=== PATIENT | male | born 1995 | race African-American/Black ===

== ENCOUNTER 2017-05-23 02:08 | Emergency (ER) | payer SELFPAY ==
[2017-05-23] MEDS ORDERED: LORAZEPAM 2 MG/ML 1 ML VIAL IV STA ×2 (02:14→02:32)
[2017-05-23 02:23] VITALS: TEMP 36.9
[2017-05-23 02:35] LABS: HEMATOCRIT 47.2 % (42-52); MEAN CELL VOLUME 81.9 fL (80-100); MEAN CORPUSCULAR HEMOGLOBIN 28.8 pg (25-34); MEAN CORPUSCULAR HGB CONC 35.2 g/dl (32-36); MEAN PLATELET VOLUME 9.5 fL (7.4-10.4); PLATELET COUNT 204 K/uL (130-400); RED BLOOD COUNT 5.76 M/uL (4.7-6.1)
[2017-05-23 02:48] LABS: URINE APPEARANCE CLEAR (CLEAR); URINE BILIRUBIN NEG (NEG); URINE COLOR YELLOW; URINE NITRITE NEG (NEG); URINE PH 5.5 (4.5-7.5); URINE SPECIFIC GRAVITY 1.017 (1.000-1.030); UROBILINOGEN NEG (NEG); ZZURINE CULT IF INDIC CATH NO
[2017-05-23 02:48] LABS: INR 1.1 (0.9-1.1); PROTHROMBIN TIME (PATIENT) 11.3 SECONDS (9.0-12.0)
[2017-05-23 02:49] LABS: MANUAL MICROSCOPIC REQUIRED? NO; REVIEW REQ? NO
[2017-05-23 02:55] LABS: ALT/SGPT 37 U/L (12-78); AST/SGOT 41 U/L (15-37); BLOOD UREA NITROGEN 15 mg/dl (7-18); BUN/CREATININE RATIO 9.7 (10-20); CALCIUM 8.3 mg/dl (8.5-10.1); CARBON DIOXIDE 26 mmol/L (21-32); CHLORIDE 113 mmol/L (98-107); GLUCOSE 94 mg/dl (70-99); POTASSIUM 4.2 mmol/L (3.5-5.1); SODIUM 147 mmol/L (136-145)
[2017-05-23 02:58] LABS: ALB/GLOB RATIO 1.3 (0.9-2); ALKALINE PHOSPHATASE 79 U/L (45-117)
[2017-05-23 03:00] LABS: BASO % 0.2 %; BASO ABS # 0.02 K/uL (0-0.2); COMPLETE YES; EOS % 0.3 %; IG% 0.3 %; LYMPH % 51.5 %; LYMPH ABS # 4.43 K/uL (1.2-3.4); MONO % 3.6 %; NEUT % 44.1 %
[2017-05-23 03:06] LABS: BENZODIAZEPINE, URINE NEG (NEG); COCAINE,URINE NEG (NEG); PHENCYCLIDINE, URINE NEG (NEG)
[2017-05-23 03:08] VITALS: O2SAT 92
--- NOTE | 2017-05-23 06:46 | EMERGENCY ROOM VISIT NOTE ---
History First contact with patient: 02:09 Chief Complaint: ALCOHOL OVERDOSE Stated Complaint: ALCOHOL OVERDOSE Nursing Triage Summary: Pt was found with his friends stumbling down the street. Pt blew 363 and has dried blood in his right ear with an abrasion on his forehead. No one was able to tell where it came from. Upon arrival patient was uncooperative and started yelling. Security called to bedside. Pt refuses to answer questions appropriately. History of Present Illness The patient is a 21 year old male who presents to the Emergency Room for evaluation of alcohol intoxication. The patient was discovered by police stumbling down the street in [facility]. The patient had a breathalyzer of 363 and was noted to have blood on his forehead and right ear. There was no history provided to explain the bleeding, and EMS was contacted. The patient is quite uncooperative upon arrival. He is speaking in nonsensical sentences. He is not answering questions. History is otherwise limited secondary to the patient's status. Review of Systems More than 10 systems were reviewed to the best of our ability considering the patient's status and otherwise negative with the exception of history of present illness. Past Medical/Surgical History Medical Problems: (1) No significant medical problems Surgical Problems: (1) No significant past surgical history Social History Smoking Status: Unknown if Ever Smoked Alcohol Use: heavy Marital Status: single Occupation Status: [employer] student Current/Historical Medications No Active Prescriptions or Reported Meds Allergies Coded Allergies: No Known Allergies (Unverified , 05/23/17) Physical Exam Vital Signs Date Time Temp Pulse Resp B/P (MAP) Pulse Ox O2 Delivery O2 Flow Rate FiO2 05/23/17 12:01 106 18 121/76 99 05/23/17 11:55 102 05/23/17 10:35 92 18 114/44 95 Room Air 05/23/17 09:05 80 05/23/17 08:37 82 20 105/51 94 Room Air 05/23/17 07:16 85 14 125/60 95 Room Air 05/23/17 06:11 85 05/23/17 06:00 83 18 113/48 95 Room Air 05/23/17 05:00 86 17 118/42 93 Room Air 05/23/17 04:05 95 23 111/42 94 Room Air 05/23/17 03:08 92 Room Air 05/23/17 03:06 109 16 159/62 92 Room Air 05/23/17 02:23 114 05/23/17 02:23 36.9 127 23 144/83 94 Room Air Physical Exam VITALS: Vitals are noted on the nurse's note and reviewed by myself. Vital signs stable. GENERAL: Grossly intoxicated appearing male who is not cooperative with the examination. He does smell of alcohol and is not answering questions appropriately. HEAD: Superficial abrasion appreciated over the left side forehead EARS: External ear normal. Left external canal without obvious findings. Right external canal is with blood from unknown origin. EYES: Pupils equal round and reactive to light and accommodation. Conjunctivae without injection, sclerae without icterus. Extraocular movements intact. NOSE: No obvious epistaxis HEART: Tachycardic rate with regular rhythm LUNGS: Clear to auscultation bilaterally without wheezes, rales or rhonchi. No retractions or accessory muscle use. ABDOMEN: Positive normal bowel sounds x 4. Soft, nontender, without masses or organomegaly. No obvious tenderness. MUSCULOSKELETAL: No muscle atrophy, erythema, or edema noted. No gross deformity. Patient is able to spontaneously move all extremities. NEURO: Patient was not alert or oriented. He is with intoxicated appearance. Medical Decision & Procedures ER Provider Diagnostic Interpretation: Preliminary Findings Only See Final Report For Complete Findings CT HEAD: No ICH, mass effect or edema. No skull fracture. Sclerotic underdeveloped right mastoid air cells. Mucous retention cyst or polyp in the right maxillary sinus. CT FACIAL: Sclerotic/underdeveloped right mastoid air cells. Trace fluid in the inferior aspect of the right mastoid air cells. No fracture. Trace fluid, or soft tissue in the right external ear canal seen on the sagittal reformat images. The middle, inner ear canals are patent. Mucous retention cyst or polyp in the right maxillary sinus. Orbits intact. CT C SPINE: No evidence of fracture or malalignment. Laboratory Results 05/23/17 02:21 Red Blood Count 5.76, Mean Corpuscular Volume 81.9, Mean Corpuscular Hemoglobin 28.8, Mean Corpuscular Hemoglobin Concent 35.2, Mean Platelet Volume 9.5, Neutrophils (%) (Auto) 44.1, Lymphocytes (%) (Auto) 51.5, Monocytes (%) (Auto) 3.6, Eosinophils (%) (Auto) 0.3, Basophils (%) (Auto) 0.2, Neutrophils # (Auto) 3.78, Lymphocytes # (Auto) 4.43, Monocytes # (Auto) 0.31, Eosinophils # (Auto) 0.03, Basophils # (Auto) 0.02 05/23/17 02:21 Test 05/23/17 02:21 05/23/17 02:30 05/23/17 02:35 White Blood Count 8.60 K/uL (4.8-10.8) Red Blood Count 5.76 M/uL (4.7-6.1) Hemoglobin 16.6 g/dL (14.0-18.0) Hematocrit 47.2 % (42-52) Mean Corpuscular Volume 81.9 fL (80-100) Mean Corpuscular Hemoglobin 28.8 pg (25-34) Mean Corpuscular Hemoglobin Concent 35.2 g/dl (32-36) Platelet Count 204 K/uL (130-400) Mean Platelet Volume 9.5 fL (7.4-10.4) Neutrophils (%) (Auto) 44.1 % Lymphocytes (%) (Auto) 51.5 % Monocytes (%) (Auto) 3.6 % Eosinophils (%) (Auto) 0.3 % Basophils (%) (Auto) 0.2 % Neutrophils # (Auto) 3.78 K/uL (1.4-6.5) Lymphocytes # (Auto) 4.43 K/uL (1.2-3.4) Monocytes # (Auto) 0.31 K/uL (0.11-0.59) Eosinophils # (Auto) 0.03 K/uL (0-0.5) Basophils # (Auto) 0.02 K/uL (0-0.2) RDW Standard Deviation 39.6 fL (36.4-46.3) RDW Coefficient of Variation 13.2 % (11.5-14.5) Immature Granulocyte % (Auto) 0.3 % Immature Granulocyte # (Auto) 0.03 K/uL (0.00-0.02) Anion Gap 8.0 mmol/L (3-11) Estimated GFR () 75.5 Estimated GFR (Non- 65.1 BUN/Creatinine Ratio 9.7 (10-20) Calcium Level 8.3 mg/dl (8.5-10.1) Total Bilirubin 0.2 mg/dl (0.2-1) Aspartate Amino Transf (AST/SGOT) 41 U/L (15-37) Alanine Aminotransferase (ALT/SGPT) 37 U/L (12-78) Alkaline Phosphatase 79 U/L (45-117) Total Protein 7.6 gm/dl (6.4-8.2) Albumin 4.3 gm/dl (3.4-5.0) Globulin 3.3 gm/dl (2.5-4.0) Albumin/Globulin Ratio 1.3 (0.9-2) Ethyl Alcohol mg/dL 413.0 mg/dl (0-3) Prothrombin Time 11.3 SECONDS (9.0-12.0) Prothromb Time International Ratio 1.1 (0.9-1.1) Activated Partial Thromboplast Time 25.6 SECONDS (21.0-31.0) Partial Thromboplastin Ratio 1.0 Urine Color YELLOW Urine Appearance CLEAR (CLEAR) Urine pH 5.5 (4.5-7.5) Urine Specific [place] 1.017 (1.000-1.030) Urine Protein 1+ (NEG) Urine Glucose (UA) NEG (NEG) Urine Ketones NEG (NEG) Urine Occult Blood NEG (NEG) Urine Nitrite NEG (NEG) Urine Bilirubin NEG (NEG) Urine Urobilinogen NEG (NEG) Urine Leukocyte Esterase NEG (NEG) Urine WBC (Auto) 0 /hpf (0-5) Urine RBC (Auto) 0-4 /hpf (0-4) Urine Hyaline Casts (Auto) 0 /lpf (0-5) Urine Epithelial Cells (Auto) 5-10 /lpf (0-5) Urine Bacteria (Auto) NEG (NEG) Urine Opiates Screen NEG (NEG) Urine Methadone, Qualitative NEG (NEG) Urine Barbiturates NEG (NEG) Urine Phencyclidine (PCP) Level NEG (NEG) Ur Amphetamine/Methamphetamine NEG (NEG) MDMA (Ecstasy) Screen NEG (NEG) Urine Benzodiazepines Screen NEG (NEG) Urine Cocaine Metabolite NEG (NEG) Urine Marijuana (THC) NEG (NEG) Medications Administered Medications (Trade) Dose Ordered Sig/Lesa Route Start Time Stop Time Status Last Admin Dose Admin Lorazepam (Ativan Inj) 2 mg NOW STAT IV 05/23/17 02:14 05/23/17 02:17 DC 7/2/17 02:19 2 MG Lorazepam (Ativan Inj) 2 mg NOW STAT IV 05/23/17 02:32 05/23/17 02:33 DC 05/23/17 03:05 2 MG ED Course Physical exam and history were performed. Nursing notes and EMR were reviewed. Patient appears to have been drinking alcohol this evening with a significantly elevated breathalyzer of 363. The patient is not cooperative and his exam and history are significantly limited. I have significant concern for the patient' s well-being due to his behavior as well as him having obvious outward signs of injury. IV access was established, and labs were obtained. We were able to make the patient much more comfortable after 2 mg IV Ativan. He was placed in a hard cervical spine collar. Following this the patient was taken to CT scan. The patient blood work is as above and was reviewed. He does not have a significantly elevated white blood cell count, gross anemia, bandemia, or significant electrolyte imbalance. His alcohol is grossly elevated at 415. The patient CT scans are as above and do not show evidence of significant acute injury. The patient did require a second dose of 2 mg IV Ativan immediately after CT scan. The patient returned to his room without incident. He was placed on the athletic monitor and was able to sleep very comfortably until the time of shift change. The case was discussed with Jeff Amaya PA-C, who will assume care at this time. The patient will need a repeat examination once he is more sober. Please see Mr. Kingchristian's dictation for further patient course, plan, and disposition. The chart was completed utilizing [employer] Speech Voice Recognition Software. Grammatical errors, random word insertions, pronoun errors, and incomplete sentences are an occasional consequence of this system due to software limitations, ambient noise, and hardware issues. Any formal questions or concerns about the content, text, or information contained within the body of this dictation should be directly addressed to the provider for clarification. . Medical Decision Differential diagnosis: Etiologies such as alcohol intoxication, toxicologic, infection, hypoglycemia, electrolyte abnormalities, cardiac sources, intracerebral event, neurologic, as well as others were entertained. Impression Primary Impression: Alcohol intoxication Additional Impression: Head injury Departure Information Prescriptions No Active Prescriptions or Reported Meds Referrals No Doctor, Assigned (PCP) Patient Instructions My [facility] Problem Qualifiers
--- NOTE | 2017-05-23 06:58 | DIAGNOSTIC IMAGING REPORT ---
CT SCAN OF THE FACIAL BONES WITHOUT IV CONTRAST CLINICAL HISTORY: Intoxication. Head injury. Blood in the right external auditory canal. COMPARISON STUDY: CT of the brain performed concurrently on 05/23/2017. TECHNIQUE: High-resolution CT scan of the facial bones is performed. Images are reviewed in the axial, sagittal, and coronal planes. IV contrast was not administered for this examination. FINDINGS: The skeletal structures are well mineralized. There is no evidence of facial bone fracture. The bony orbits are intact and the orbital contents are within normal limits. The zygomatic arches, nasal bones, and pterygoid plates are preserved. The maxilla and mandible are intact. There are no layering blood products within the paranasal sinuses. There is a 1.7 cm retention cyst in the right maxillary antrum. The paranasal sinuses are otherwise clear. There is a small right mastoid effusion. The left mastoid air cells are clear. The visualized calvarium and upper cervical spine are maintained. Partially imaged brain parenchyma is within normal limits. Trace fluid or debris is present within the right external auditory canal. IMPRESSION: There is no evidence of facial bone fracture. Electronically signed by: Sudhakar Schafer M.D. 05/23/2017 6:57 AM Dictated Date/Time: 05/23/2017 6:51 AM
--- NOTE | 2017-05-23 07:52 | DIAGNOSTIC IMAGING REPORT ---
CT SCAN OF THE CERVICAL SPINE CLINICAL HISTORY: Intoxication. Trauma. Head injury. COMPARISON STUDY: No priors. TECHNIQUE: CT scan of the cervical spine is performed from the skull base to the upper thoracic spine. Images are reviewed in the axial, sagittal, and coronal planes. IV contrast was not administered for this examination. FINDINGS: Skeletal structures: The skeletal structures are well mineralized. There is no evidence of fracture or subluxation involving the cervical spine. Vertebral body height and alignment are maintained. There is straightening of the cervical lordosis. The odontoid process and lateral masses are intact. The atlantoaxial articulation is preserved. The spinous processes appear intact. Intervertebral discs: The disc spaces are well maintained. Central canal: Widely patent. Soft tissues: The prevertebral and paraspinous soft tissues are within normal limits. Calvarium: The visualized calvarium at the skull base appears intact. Brain parenchyma: Partially visualized brain parenchyma the skull base is within normal limits. Sinuses and mastoids: The visualized paranasal sinuses are clear. There is a small right mastoid effusion. The right mastoid air cells are underpneumatized. The left mastoid air cells are clear. IMPRESSION: There is no evidence of fracture or subluxation involving the cervical spine. Electronically signed by: Sudhakar Schafer M.D. 05/23/2017 7:51 AM Dictated Date/Time: 05/23/2017 7:49 AM
--- NOTE | 2017-05-23 08:13 | DIAGNOSTIC IMAGING REPORT ---
CT SCAN OF THE BRAIN WITHOUT IV CONTRAST CLINICAL HISTORY: Intoxication. Head injury. COMPARISON STUDY: No priors. TECHNIQUE: Unenhanced axial CT scan of the brain is performed from the vertex to the skull base. Automated dose control exposure was utilized. CT DOSE: 2274.57 mGy.cm FINDINGS: Brain parenchyma: The brain parenchyma is normal in appearance. There is no hemorrhage, mass effect, or evidence of acute territorial ischemia by CT criteria. Joshi-white matter is preserved. No extra-axial fluid collection is seen. Ventricles, sulci, cisterns: Normal in configuration. Intracranial vasculature: The visualized intracranial vasculature at the skull base is normal in appearance. Calvarium: There is no depressed calvarial fracture. Sinuses and mastoids: A retention cyst is seen in the right maxillary antrum. The remaining paranasal sinuses are clear. The right mastoid air cells are underpneumatized. A trace right mastoid effusion is noted The left mastoid air cells are well pneumatized. Orbits: The bony orbits are grossly intact. IMPRESSION: No acute intracranial abnormality. Electronically signed by: Sudhakar Schafer M.D. 05/23/2017 8:12 AM Dictated Date/Time: 05/23/2017 8:10 AM
[2017-05-23 12:01] VITALS: BP 121/76; PULSE 106; O2SAT 99
== END 2017-05-23 12:01 | disposition home or self-care (01) ==
LOC: EDBD 02:08 → C.EDB 02:10
DX: F10.129 Alcohol abuse with intoxication, unspecified (principal); S09.90XA Unspecified injury of head, initial encounter; X58.XXXA Exposure to other specified factors, initial encounter